=== PATIENT | female | born 1985 | race Caucasian/White ===

== ENCOUNTER 2018-11-08 07:20 | Day surgery (SDC) | payer OTHER ==
--- NOTE | 2018-11-06 06:59 | PREOPHP ---
DATE OF ADMISSION: 11/08/2018 HISTORY OF PRESENT ILLNESS: This is a 34-year-old female with a history of pelviscopic ovarian cyste ctomy, one and a LEEP conization of the cervix for JAZMYNE 3. The patient had been using ____ and at this time she would like it removed. The patient is supposed to look for an alternative optio n and she would like to have a tubal ligation. The patient had a history of having chronic intractab le pelvic pain, menometrorrhagia for PCO syndrome and fibroid uterus. She also has a history of asth ma. The patient was advised that if she tied her tubes like she wants to do, she would possibly go b ack to having heavy periods with clots and pelvic pain. She is already understanding of this possibi lity, but she suffers from migraine headaches that are intractable and she has been thinking to use o ther treatment for her migraines and oral contraceptives would be a trigger for her ongoing migraine. She would not like to go back to control pill sides as these were bad for her side effect. T he patient has a history of endometriosis and she is willing to use other alternative treatments to c ontrol pelvic pain and bleeding. The patient is requesting a pelviscopic excision of the tubes and N explanon excision. The patient also states her Nexplanon was giving her severe headaches for which s he is not tolerating hormonal control. She is not interested in ____ IUD due to the history of intractable chronic pelvic pain. At this time, we will remove the Nexplanon to clear her from her m igraines and pelviscopic excision of the tubes will be done, and later on we will deal with her perio ds and see how they come up after this procedure. PAST MEDICAL HISTORY: As already said, ____, endometriosis, fibroid uterus, previous and C ID 3 of the cervix with LEEP conization REVIEW OF SYSTEMS: Contributory for migraine headaches, JAZMYNE 3 of the cervix. No other problems of d iabetes, thyroid disease and no cardiovascular problems. She does have a history of asthma, but mild , and no GI problems, endocrine, orthopedic, or neurological problems. ALLERGIES: THE PATIENT IS ALLERGIC TO CODEINE, PENICILLIN, AND THE DEPO SHOT. SOCIAL HISTORY: She does not drink or smoke. No history of drugs. MEDICATIONS: At the present time she is takin. Fioricet. 2. She used to be on Topamax for her headaches, but she is not on it anymore. 3. Sumatriptan. FAMILY HISTORY: Noncontributory. PHYSICAL EXAMINATION: VITAL SIGNS: Stable. Blood pressure is 120/80 and she weighs 143 pounds. She is 5 feet 3 inches. S he is afebrile. HEAD AND NECK: Normal. CHEST: Clear. HEART: Normal sinus rhythm. LUNGS: Clear. ABDOMEN: Soft, nontender, no masses. PELVIC: The patient has right lower quadrant pain on mobilization of the uterus to the left side. T he uterus is hypertrophic, mobile, and bladder is nontender. EXTREMITIES: Normal. ____ is in the left arm. PLAN: So, she will have a pelviscopic tubal ligation through bilateral salpingectomy since she does not want to come back for an ectopic , and she would like the benefit of protection for ovar ethel cancer. She will also have the Nexplanon removed. She has been advised of the possible risks an d possible complications of the procedure with her alternatives and options. Written information was provided. She had no more questions and agreed to go ahead with the procedure with full understandi ng and no more questions. Dictated By: ANNETTA YANG/NTS Conf#: [id number] DID#: [id number]
[~2018-11-08] VITALS: Ht 160 cm; Wt 62.0 kg
[2018-11-08] VITALS (17 sets, daily range): BP systolic 96–116; BP diastolic 53–68; PULSE 80–100; RESP 7–20; Ht 160 cm; Wt 62.0 kg
[~2018-11-08 07:20] MED LIST: CLINDAMYCIN 900 MG/D5W (PMX) 50 ML IVPB ONE; LORA0.5T PO; OLAN5TAB5 PO; TYL500 PO
[2018-11-08] MEDS ORDERED: ALBU8.5H8 INH (08:45)
--- NOTE | 2018-11-08 10:09 | HPN ---
Date/Time of Note Date/Time of Note DATE: 11/08/18 TIME: 10:08 Interval H&P Admission Note Pt. seen H&P reviewed: No system changes ANNETTA PHILLIP MD November 08, 2018 10:09
--- NOTE | 2018-11-08 10:18 | PREAC ---
Date/Time of Note Date/Time of Note DATE: 11/08/18 TIME: 10:16 Anesthesia Eval and Record Evaluation Time Pre-Procedure Interview DATE: 11/08/18 TIME: 10:16 Age 33 Sex female NPO: 8 hrs Preoperative diagnosis Sterilization Planned procedure Pelviscopy and Bilateral salpingectomy Past Medical History Past Medical History: None Surgery & Anesthesia Issues No known issue Meds Anticoagulation: No Beta Bernie within 24 hr: No Reason Beta Bernie not given: Pt. not on B-Bernie Reported Medications Albuterol Sulfate* (Proair HFA*) 8.5 Gm Hfa.aer.ad, 2 PUFF INH Q4H PRN for WHEEZING AND SOB, #1 INHALER 11/08/18 Discontinued Reported Medications Olanzapine* (Zyprexa*) 5 Mg Tablet, 5 MG PO DAILY, TAB 04/20/14 Lorazepam* (Lorazepam*) 0.5 Mg Tablet, 0.5 MG PO Q6 PRN for ANXIETY, TAB 04/20/14 Discontinued Scripts Acetaminophen* (Tylenol*) 500 Mg Tab, 500 MG PO Q4H PRN for MILD PAIN LEVEL 1-3, #20 TAB Prov:ELIZABETH HUFFMAN MD 05/07/15 Meds reviewed: Yes Allergies Coded Allergies: Penicillins (Verified Allergy, Unknown, 11/08/18) ibuprofen (Verified Allergy, Unknown, ITCHING, 11/08/18) morphine (Unverified Allergy, Unknown, 11/08/18) Allergies Reviewed: Yes Labs/Studies Labs Reviewed: Reviewed by anesthesiologist test: Negative Studies: ECG Pre-procedure Exam Last vitals Vital Signs Date Temp Pulse Resp B/P (MAP) Pulse Ox O2 O2 Flow FiO2 Time Delivery Rate 11/08/18 97.4 80 16 106/61 98 Room Air 09:21 (76) Airway: Adequate mouth opening, Adequate thyromental dist Mallampati: Mallampati II Teeth: Normal Lung: Normal Heart: Normal ASA Physical Status ASA physical status: 1 Emergency: None Planned Anesthetic General/MAC: LMA Planned Pain Management Parenteral pain med Pre-operative Attestations Prior to commencing anesthesia and surgery, the patient was re-evaluated, there was verification of: *The patient's identity *The results of appropriate recent lab work and preoperative vital signs *The above evaluation not changing prior to induction *Anesthetic plan, risk benefits, alternative and complications discussed with patient/family; questions answered; patient/family understands, accepts and wishes to proceed. YAAKOV MORALES MD November 08, 2018 10:18
[2018-11-08] MEDS ORDERED: BUPIVACAINE 0.25%/EPI (SDV) 30 ML INJ ONE (10:26)
[2018-11-08] MEDS ORDERED: MIDAZOLAM 1 MG/ML 2 ML INJ ONE (10:42)
[2018-11-08] MEDS ORDERED: ROCURONIUM 50 MG INJ ONE (12:28)
[2018-11-08] MEDS ORDERED: LIDOCAINE 2% (SDV) 5 ML INJ ONE (12:28)
[2018-11-08] MEDS ORDERED: CEFAZOLIN 1 GM INJ ONE (12:28)
[2018-11-08] MEDS ORDERED: PROPOFOL 20 ML ONE (12:28)
[2018-11-08] MEDS ORDERED: ONDANSETRON 4 MG INJ ONE (12:29)
--- NOTE | 2018-11-08 12:30 | PD.PPDC ---
RESIDENT ATHLETIC TRAINER Discharge Instruction Condition Eisto1Hh Patient Condition: Rknlp2t Good Diet [id number] Diet: Mzfht0q Resume Regular Diet Activity/Restrictions [id number] Activity: [id number] Normal Activity May Shower Weecj1Vp Restrictions: Rhfrw5d No Exercising No Lifting No Driving No Sexual Activity Nothing in the Vagina No Handley No Tampons, douche Wound/Drain Care Instructions [id number] Wound/Drain Care Instructions: Eewyp2h Wash with soap and water Keep clean and dry Follow-up Follow-up with Physician: 2, Week/Weeks Return to clinic for [id number] [facility] Instructions: Bnpix5x Fever greater than 101 Chills Worsening abdominal pain Excessive Vaginal Bleeding More than 2 pads per hour Unable to tolerate diet [id number] Surgical Instructions: Bjbfs1g Incisional Drainage Incisional Redness ANNETTA PHILLIP MD November 08, 2018 12:30
[2018-11-08] MEDS ORDERED: MEPERIDINE 25 MG INJ ONE (12:40)
--- NOTE | 2018-11-08 12:44 | PAC ---
Date/Time of Note Date/Time of Note DATE: 11/08/18 TIME: 12:43 Post-Anesthesia Notes Post-Anesthesia Note Last documented vital signs Vital Signs Date Temp Pulse Resp B/P (MAP) Pulse Ox O2 O2 Flow FiO2 Time Delivery Rate 11/08/18 97.4 80 16 106/61 98 Room Air 09:21 (76) Activity: WNL Respiratory function: WNL Cardiovascular function: WNL Mental status: Baseline Pain reasonably controlled: Yes Hydration appropriate: Yes Nausea/Vomiting absent: Yes Comments BP:111/60. P:92, Spo2:100%, T:98 YAAKOV MORALES MD November 08, 2018 12:44
--- NOTE | 2018-11-08 12:45 | SIPON ---
Date/Time of Note Date/Time of Note DATE: 11/08/18 TIME: 12:43 Operative Report Preoperative Diagnosis Multiparity Voluntary sterilization Fibroid uterus endometriosis JAZMYNE-3 of the cervix previously Postoperative Diagnosis Same plus left ovarian adhesions from previous section Operation/Procedure Performed Pelviscopic bilateral salpingectomy lysis of adnexal adhesions left side and Nexplanon excision Surgeon see signature line ophthalmic medical assistant TERENCE Epstein Anesthesia: general Estimated blood loss: minimal Transfusion Required none Specimen Bilateral tubes and Nexplanon Grafts/Implants none Complications none ANNETTA PHILLIP MD November 08, 2018 12:45
[2018-11-08] MEDS ORDERED: ONDANSETRON 4 MG INJ IV PRN (13:00)
[2018-11-08] MEDS ORDERED: DIPHENHYDRAMINE 50 MG INJ IV PRN (13:00)
[2018-11-08] MEDS: FENTAnyl 50 MCG/ML VIAL IV PRN ×4 (13:10→13:30)
[2018-11-08] MEDS ORDERED: HYDROCODONE/APAP (5/325) TAB PO ONE ×2 (14:00→15:30)
--- NOTE | 2018-11-08 14:01 | RADRPT ---
Vent Rate: 73 bpm RR Interval: 824 msec VA Interval: 141 msec QRS Duration: 103 msec QT Interval: 407 msec QTC Interval: 448 msec P-R-T [place]: 49 - 36 - 18 degrees Sinus rhythm...normal P axis, V-rate 50- 99 Electronically Signed By: Cullen Mccray
--- NOTE | 2018-11-08 14:28 | OPR ---
DATE OF OPERATION: 11/08/2018 PROCEDURE: Pelviscopy, bilateral salpingectomy, lysis of adhesions. POSTOPERATIVE DIAGNOSES: Multiparity, fibroid uterus, endometriosis and desired tubal ligation, also has diagnosis JAZMYNE 3 previously of the cervix. SURGEON: Annetta Leigh MD ANALYTICAL CONSULTANT: TERENCE Epstein PROCEDURES DONE: Pelviscopy, bilateral salpingectomy and Nexplanon excision. COMPLICATIONS: None. ANESTHESIA: General anesthesia. ANESTHESIOLOGIST: Dr. Anne. DESCRIPTION OF PROCEDURE: The patient was given general anesthesia, placed in the lithotomy position . The abdomen, perineal and vaginal area were prepped and draped, confirmatory examination. The gambell marah was bulky and a HUMI was inserted and the Adams catheter. The abdominal incision was made around the inferior edge of the umbilicus and the fascia was incised and held with a #1 Vicryl. The perito neum was entered bluntly. The visualization of the pelvic organs revealed that there were adhesions of the left ovary to the side of the pelvis. The uterus with irregularities as early fibroid. The l eft adnexal endometriosis of the ovary and small implants of endometriosis in the cul-de-sac. The ri ght ovary was normal and the tubes were normal. A second trocar and cannula and a third trocar and c annula were placed suprapubically on the left side 5 cm below the umbilicus laterally to the rectus m uscle. The Voyant bipolar instrument was used and the left tube was grabbed first and bipolar instru ment was used for catheterization of the mesosalpinx all the way from the fimbriated end to the cornu al end of the uterus. The same thing was done on the other side. Both tubes were removed. The left ovary had endometriosis. Cyst that was ruptured at the time of the incision of the mesosalpinx and the visualization of the hemostasis was done under water. The wound was irrigated and the pelvis loo ked good after with no actual bleeding. The excision of the fluid was done with the suction and the closure of the abdomen was done with 0 Vicryl for the fascia, 3-0 Monocryl for all 3 incisions. The Marcaine with epinephrine was injected in all 3 incisions and also Dermabond was used at this time. Excision was done on the left arm and anterior localized with Nexplanon. We cleaned the area and an incision was made with knife to the tip of the Nexplanon and that was lifted up with Xylocaine and ep inephrine, and the Nexplanon was removed and Dermabond was used for sealing and a piece of Tegaderm. The patient tolerated the procedure well and left the OR awake and stable. Sponge counts and instr ument counts were correct. Intravenous antibiotics were given for prophylaxis. Blood loss was minim al. The urine was clear at the end of the procedure. Dictated By: ANNETTA YANG/NTS Conf#: [id number] DID#: [id number] CC: JAC PRATT;*EndCC*
[2018-11-08] MEDS ORDERED: MEPERIDINE 25 MG INJ IV ONE (15:00)
== END 2018-11-08 16:52 | disposition home or self-care (01) ==
LOC: SDS 07:20
PROVIDERS: ATTEND Obstetrics & Gynecology
DX: Z30.2 Encounter for sterilization (principal)
CPT/HCPCS: 58661; 88300; 88302; 93005; J0690; J2175; J2250; J2405; J3010; Z7610